=== PATIENT | female | born 1950 | race Caucasian/White ===

== ENCOUNTER 2016-12-25 22:49 | Emergency (ER) | payer BC | END 2016-12-26 03:35 | disposition home or self-care (01) | LOC: ER 22:49 | DX: N39.0 Urinary tract infection, site not specified (principal); E86.0 Dehydration; R11.0 Nausea; E10.9 Type 1 diabetes mellitus without complications; Z79.82 Long term (current) use of aspirin; Z79.899 Other long term (current) drug therapy; Z88.0 Allergy status to penicillin | CPT/HCPCS: 36415; 96361; 96365; 96375; J0696 ==